=== PATIENT | female | born 1950 | race Caucasian/White ===

== ENCOUNTER → 2021-02-24 15:00 | Outpatient (CLI) | payer OTHER ==
[~2021-02-24 15:00] MED LIST: AMOX1TAB12 PO; CARAFATE SU1 G/10 ML PO; INTESTINEX1 CA1 PO; NEXIUM2.5 MG; PROTONIX40 MG PO; SYNTHROID75 MCG; TUSSIONEX PENNKI5 ML PO; XOPENEX0.63 MG/3 IH; ZANTAC 7575 MG
== END | disposition home or self-care (01) ==
LOC: PPH VACUNA 15:00
DX: Z23 Encounter for immunization (principal)